=== PATIENT | female | born 1940 | race Caucasian/White ===

== ENCOUNTER → 2021-03-30 | Outpatient (CLI) | payer MEDICARE, OTHER ==
[~2021-03-30] VITALS: Ht 154.9 cm; Wt 56.0 kg
[2021-03-30 11:27] VITALS: BP 152/72
== END | disposition home or self-care (01) ==
LOC: SRCNTR 10:54
PROVIDERS: ATTEND Internal Medicine
DX: J47.9 Bronchiectasis, uncomplicated (principal); I27.29 Other secondary pulmonary hypertension; R09.02 Hypoxemia
CPT/HCPCS: G0463